=== PATIENT | female | born 1965 | race Caucasian/White ===

== ENCOUNTER 2017-10-18 18:55 | Inpatient (IN) | payer MEDICAID, OTHER ==
[~2017-10-18] VITALS: Ht 172.7 cm; Wt 125.0 kg
[2017-10-18] MEDS ORDERED: SODIUM CHLORIDE FLUSH 10ML SYR IVF ONE (19:30)
[2017-10-18 19:55] LABS: BASOPHILS # (AUTO) 0.01 x10^3/uL (0-0.1); BASOPHILS % (AUTO) 0 % (0-1); EOSINOPHILS # (AUTO) 0.05 x10^3/uL (0-0.4); EOSINOPHILS % (AUTO) 1 % (1-7); LYMPHOCYTES # (AUTO) 3.18 x10^3/uL (1-3.4); LYMPHOCYTES % (AUTO) 32 % (22-44); MD NO; MEAN CORPUSCULAR HEMOGLOBIN 32.9 pg (27.0-34.8); MEAN CORPUSCULAR HGB CONC 34.3 g/dL (32.4-35.8); MEAN PLATELET VOLUME 10.4 fL (7.4-10.4); MONOCYTES # (AUTO) 0.48 x10^3/uL (0.2-0.8); MONOCYTES % (AUTO) 5 % (2-9); NEUTROPHILS % (AUTO) 62 % (42-75); PLATELET COUNT 154 x10^3/uL (130-400); RED CELL DISTRIBUTION WIDTH 13.6 % (9.6-15.2)
[2017-10-18 20:01] LABS: INTERNATIONAL NORMALIZED RATIO 0.99 (0.93-1.1); PROTHROMBIN TIME 10.3 Seconds (9.6-11.5)
[2017-10-18 20:06] LABS: ALBUMIN 3.6 g/dL (3.4-5.0); ANION GAP 8 mmol/L (5-15); CALCIUM 8.7 mg/dL (8.5-10.1); CHLORIDE 109 mmol/L (98-107)
[2017-10-18 20:12] LABS: ALANINE AMINOTRANSFERASE 23 U/L (12-78); ALKALINE PHOSPHATASE 101 U/L (45-117); BILIRUBIN,TOTAL 0.6 mg/dL (0.2-1.0); CREATININE 1.03 mg/dL (0.55-1.02); TOTAL PROTEIN 7.6 g/dL (6.4-8.2); TROPONIN I < 0.015 ng/mL (0.000-0.045)
[2017-10-18] MEDS ORDERED: OMNIPAQUE 350 MG/ML, 100ML BOTTLE ONE (20:45)
[2017-10-18] MEDS ORDERED: ACETAMINOPHEN 325 MG TABLET PO PRN (23:30)
[2017-10-18] MEDS: ENOXAPARIN 40 MG/0.4 ML SQ SCH (23:30)
[2017-10-18] MEDS ORDERED: TEMAZEPAM 15 MG CAPSULE PO PRN (23:30)
[2017-10-18] MEDS ORDERED: hydrALAzine 20 MG/ML, 1ML IVPush PRN (23:30)
[2017-10-18] MEDS ORDERED: ONDANSETRON ODT 4 MG PO PRN (23:30)
[2017-10-18] MEDS: NICOTINE 14MG/24 HR PATCH.TD24 TD SCH (23:30)
[2017-10-19] MEDS ORDERED: ALBUTEROL SULFATE 2.5 MG/3 ML NPPB PRN
[2017-10-19 01:36] VITALS: BP 113/72
[2017-10-19] MEDS: ALBUTEROL/IPRATROPIUM 2.5MG/0.5MG, 3 ML HHN SCH ×5 (05:20→20:25)
[2017-10-19 07:35] VITALS: BP 113/67
[2017-10-19 14:51] VITALS: BP 135/77
[2017-10-19 19:09] VITALS: BP 122/72
[2017-10-19] MEDS: ENOXAPARIN 40 MG/0.4 ML SQ SCH (23:20)
[2017-10-19] MEDS: NICOTINE 14MG/24 HR PATCH.TD24 TD SCH (23:20)
[2017-10-20 00:58] VITALS: BP 98/60
[2017-10-20] MEDS: ALBUTEROL/IPRATROPIUM 2.5MG/0.5MG, 3 ML HHN SCH ×2 (03:37→09:05)
[2017-10-20 05:19] LABS: BASOPHILS # (AUTO) 0.03 x10^3/uL (0-0.1); BASOPHILS % (AUTO) 0 % (0-1); EOSINOPHILS # (AUTO) 0.02 x10^3/uL (0-0.4); EOSINOPHILS % (AUTO) 0 % (1-7); LYMPHOCYTES # (AUTO) 2.47 x10^3/uL (1-3.4); LYMPHOCYTES % (AUTO) 31 % (22-44); MD NO; MEAN CORPUSCULAR HEMOGLOBIN 32.5 pg (27.0-34.8); MEAN CORPUSCULAR HGB CONC 33.7 g/dL (32.4-35.8); MEAN CORPUSCULAR VOLUME 96.4 fL (80-100); MEAN PLATELET VOLUME 10.2 fL (7.4-10.4); MONOCYTES # (AUTO) 0.53 x10^3/uL (0.2-0.8); MONOCYTES % (AUTO) 7 % (2-9); NEUTROPHILS # (AUTO) 4.96 x10^3/uL (1.8-6.8); NEUTROPHILS % (AUTO) 62 % (42-75); PLATELET COUNT 133 x10^3/uL (130-400); RED BLOOD COUNT 4.61 x10^6/uL (3.82-5.3); RED CELL DISTRIBUTION WIDTH 13.7 % (9.6-15.2)
[2017-10-20 05:27] LABS: ALANINE AMINOTRANSFERASE 18 U/L (12-78); ALBUMIN 3.1 g/dL (3.4-5.0); ANION GAP 8 mmol/L (5-15); CHLORIDE 107 mmol/L (98-107); CREATININE 0.84 mg/dL (0.55-1.02)
[2017-10-20 05:31] LABS: ALKALINE PHOSPHATASE 81 U/L (45-117); BILIRUBIN,TOTAL 0.5 mg/dL (0.2-1.0); TOTAL PROTEIN 6.8 g/dL (6.4-8.2)
[2017-10-20 07:50] VITALS: BP 114/72
[2017-10-20] MEDS ORDERED: FLU VACC QS2017-18 (36MOS+) UP/PF 0.5 ML IM-VACC ONE (08:00)
[2017-10-20] MEDS: BENZONATATE 100 MG CAPSULE PO SCH ×3 (08:13→21:59)
[2017-10-20] MEDS: GUAIFENESIN 200 MG TABLET PO SCH ×3 (10:54→21:59)
[2017-10-20] MEDS: AMOXICILLIN 500 MG CAPSULE PO SCH ×2 (10:54→21:59)
[2017-10-20] MEDS ORDERED: AMOX-291 PO (16:59)
[2017-10-20] MEDS ORDERED: PRED20TA PO (16:59)
[2017-10-20 18:42] VITALS: BP 116/72
[2017-10-20 20:06] VITALS: BP 125/80
[2017-10-20] MEDS: ENOXAPARIN 40 MG/0.4 ML SQ SCH (21:58)
[2017-10-20] MEDS: NICOTINE 14MG/24 HR PATCH.TD24 TD SCH (21:59)
[2017-10-21 01:59] VITALS: BP 96/68
[2017-10-21] MEDS: GUAIFENESIN 200 MG TABLET PO SCH (05:53)
[2017-10-21 07:33] VITALS: BP 100/72
[2017-10-21] MEDS: AMOXICILLIN 500 MG CAPSULE PO SCH (08:08)
[2017-10-21] MEDS: BENZONATATE 100 MG CAPSULE PO SCH (08:08)
[2017-10-21] MEDS ORDERED: BENZ-17 PO (11:13)
== END 2017-10-21 11:27 | disposition home or self-care (01) | DRG 189 ==
LOC: ED 22:58 → EDIP 23:05 → 4EST 23:21 → DCLOUNGE 10-21 11:11
PROVIDERS: ADMIT Hospitalist; ATTEND Hospitalist
DX: J96.01 Acute respiratory failure with hypoxia (principal); E66.2 Morbid (severe) obesity with alveolar hypoventilation; I50.32 Chronic diastolic (congestive) heart failure; G45.9 Transient cerebral ischemic attack, unspecified; J44.1 Chronic obstructive pulmonary disease with (acute) exacerbation; F17.210 Nicotine dependence, cigarettes, uncomplicated; G47.33 Obstructive sleep apnea (adult) (pediatric); I25.2 Old myocardial infarction; K04.7 Periapical abscess without sinus; K05.10 Chronic gingivitis, plaque induced; R53.82 Chronic fatigue, unspecified; Z82.49 Family history of ischemic heart disease and other diseases of the circulatory system; Z86.711 Personal history of pulmonary embolism; Z86.718 Personal history of other venous thrombosis and embolism; Z86.73 Personal history of transient ischemic attack (TIA), and cerebral infarction without residual deficits; Z91.19 Patient's noncompliance with other medical treatment and regimen
CPT/HCPCS: 36415; 71045; 71275; 80053; 83735; 83880; 84100; 84484; 85025; 85610; 85730; 93005; 93306; 94640; 99285; J1650; J7620; Q9967; J7512

== ENCOUNTER 2018-09-15 12:57 | Inpatient (IN) | payer OTHER ==
[~2018-09-15] VITALS: Ht 172.7 cm; Wt 122.1 kg
[~2018-09-15 12:57] MED LIST: AMOX-291 PO; BENZ-17 PO; PRED20TA PO
[2018-09-15] MEDS ORDERED: SODIUM CHLORIDE FLUSH 10ML SYR IVF ONE (13:30)
[2018-09-15] MEDS ORDERED: ALBUTEROL/IPRATROPIUM 2.5MG/0.5MG, 3 ML ONE (13:51)
[2018-09-15 13:53] LABS: BASOPHILS # (AUTO) 0.03 x10^3/uL (0-0.1); BASOPHILS % (AUTO) 1 % (0-1); EOSINOPHILS # (AUTO) 0.01 x10^3/uL (0-0.4); EOSINOPHILS % (AUTO) 0 % (1-7); LYMPHOCYTES # (AUTO) 1.18 x10^3/uL (1-3.4); LYMPHOCYTES % (AUTO) 24 % (22-44); MD NO; MEAN CORPUSCULAR HEMOGLOBIN 32.2 pg (27.0-34.8); MEAN CORPUSCULAR HGB CONC 33.9 g/dL (32.4-35.8); MEAN CORPUSCULAR VOLUME 95.2 fL (80-100); MEAN PLATELET VOLUME 9.9 fL (7.4-10.4); MONOCYTES # (AUTO) 0.47 x10^3/uL (0.2-0.8); MONOCYTES % (AUTO) 9 % (2-9); NEUTROPHILS # (AUTO) 3.33 x10^3/uL (1.8-6.8); NEUTROPHILS % (AUTO) 66 % (42-75); PLATELET COUNT 121 x10^3/uL (130-400); RED BLOOD COUNT 4.48 x10^6/uL (3.82-5.3); RED CELL DISTRIBUTION WIDTH 13.2 % (9.6-15.2)
[2018-09-15] MEDS ORDERED: ALBUTEROL/IPRATROPIUM 2.5MG/0.5MG, 3 ML NPPB ONE (14:00)
[2018-09-15 14:01] LABS: ALBUMIN 3.5 g/dL (3.4-5.0); ANION GAP 5 mmol/L (5-15); CALCIUM 8.4 mg/dL (8.5-10.1); CHLORIDE 107 mmol/L (98-107); CREATININE 0.73 mg/dL (0.55-1.02)
[2018-09-15] MEDS ORDERED: HOME OXYGEN INH (14:12)
[2018-09-15] MEDS ORDERED: BUDE10.22 INH (14:12)
[2018-09-15] MEDS ORDERED: ALBU6.7H INH (14:12)
[2018-09-15] MEDS ORDERED: WARF-36 PO (14:12)
[2018-09-15] MEDS ORDERED: METO25TA35 PO (14:12)
[2018-09-15] MEDS ORDERED: WARF7.5T46 PO (14:12)
[2018-09-15 14:25] LABS: TROPONIN I < 0.015 ng/mL (0.000-0.045)
[2018-09-15] MEDS ORDERED: IBUPROFEN 200 MG TABLET PO ONE (15:00)
[2018-09-15] MEDS ORDERED: IBUPROFEN 800 MG TABLET ONE (15:32)
[2018-09-15] MEDS ORDERED: IBUPROFEN 200 MG TABLET ONE (15:35)
--- NOTE | 2018-09-15 15:37 | NUR ---
PT MED NOTED FOR CHRONIC BACK PAIN AND INCREASED PAIN WITH FREQUENT COUGHING.
[2018-09-15] MEDS ORDERED: BISACODYL 10 MG SUPP PR PRN (16:00)
[2018-09-15] MEDS ORDERED: ONDANSETRON 2MG/ML, 2ML IVPush PRN (16:00)
[2018-09-15] MEDS ORDERED: ENALAPRILAT 1.25 MG/ML, 2ML IVPush PRN (16:00)
[2018-09-15] MEDS ORDERED: DOCUSATE 100 MG CAPSULE PO PRN (16:00)
[2018-09-15] MEDS ORDERED: POLYETHYLENE GLYCOL 17 GM PACKET PO PRN (16:00)
[2018-09-15 16:05] LABS: INTERNATIONAL NORMALIZED RATIO 1.14 (0.93-1.1)
[2018-09-15 17:00] VITALS: BP 137/53
[2018-09-15] MEDS ORDERED: WARFARIN 7.5 MG TABLET PO-COUM ONE (18:00)
[2018-09-15] MEDS: ALBUTEROL/IPRATROPIUM 2.5MG/0.5MG, 3 ML NPPB SCH ×2 (18:00→20:33)
[2018-09-15] MEDS: methylPREDNISolone SOD SUCC 125 MG/2 ML IVPush SCH ×2 (18:08→23:51)
[2018-09-15] MEDS: ENOXAPARIN 40 MG/0.4 ML SQ SCH (18:08)
[2018-09-15] MEDS: DOXYCYCLINE 100 MG in DEXTROSE 5% 250 ML IV SCH (18:08)
[2018-09-15 19:27] VITALS: BP 140/79
[2018-09-15] MEDS: GUAIFENESIN ER 600 MG TABLET PO SCH (20:08)
[2018-09-15] MEDS: METOPROLOL TARTRATE 25 MG TABLET PO SCH (20:08)
[2018-09-15] MEDS: CEFTRIAXONE PMX 1GM/50ML 50 ML IV SCH (20:09)
[2018-09-15] MEDS: SODIUM CHLORIDE FLUSH 10ML SYR IVF SCH (20:09)
[2018-09-15] MEDS ORDERED: ALBUTEROL SULFATE 2.5 MG/3 ML NPPB SCH (21:00)
[2018-09-15 21:05] LABS: RAPID INFLUENZA B Negative (Negative)
[2018-09-15 21:06] LABS: RAPID INFLUENZA A POSITIVE (Negative)
[2018-09-16 00:41] VITALS: BP 104/62
[2018-09-16 02:06] VITALS: BP 106/64
[2018-09-16] MEDS ORDERED: OSELTAMIVIR 75 MG CAPSULE PO SCH (05:00)
[2018-09-16] MEDS: methylPREDNISolone SOD SUCC 125 MG/2 ML IVPush SCH ×3 (05:43→18:05)
[2018-09-16] MEDS: DOXYCYCLINE 100 MG in DEXTROSE 5% 250 ML IV SCH ×2 (05:43→18:34)
[2018-09-16] MEDS: OSELTAMIVIR 75 MG CAPSULE PO SCH ×3 (05:43→21:03)
[2018-09-16 06:37] LABS: MEAN CORPUSCULAR HEMOGLOBIN 31.9 pg (27.0-34.8); MEAN CORPUSCULAR HGB CONC 33.4 g/dL (32.4-35.8); MEAN CORPUSCULAR VOLUME 95.4 fL (80-100); MEAN PLATELET VOLUME 10.1 fL (7.4-10.4); PLATELET COUNT 121 x10^3/uL (130-400); RED BLOOD COUNT 4.62 x10^6/uL (3.82-5.3); RED CELL DISTRIBUTION WIDTH 13.4 % (9.6-15.2)
[2018-09-16 06:41] LABS: INTERNATIONAL NORMALIZED RATIO 1.1 (0.93-1.1); PROTHROMBIN TIME 11.6 Seconds (9.6-11.5)
[2018-09-16 06:42] LABS: ANION GAP 6 mmol/L (5-15); CALCIUM 8.6 mg/dL (8.5-10.1); CHLORIDE 108 mmol/L (98-107); CREATININE 1.01 mg/dL (0.55-1.02)
[2018-09-16 06:55] VITALS: BP 111/65
[2018-09-16] MEDS: ALBUTEROL/IPRATROPIUM 2.5MG/0.5MG, 3 ML NPPB SCH ×6 (07:20→22:00)
[2018-09-16 07:56] LABS: MD YES
[2018-09-16 08:01] LABS: BAND#(MANUAL) 0.28 x10^3/uL; BANDS%(MANUAL) 12 % (0-7); LYMPH#(MANUAL) 0.62 x10^3/uL (1-3.4); LYMPHS% (MANUAL) 27 % (22-44); SEGS% (MANUAL) 52 % (42-75)
[2018-09-16 08:02] LABS: REACTIVE LYMPHS % (MANUAL) 3 % (0-0)
[2018-09-16 08:03] LABS: MONOS#(MANUAL) 0.14 x10^3/uL (0.3-2.7); MONOS% (MANUAL) 6 % (2-9); REACTIVE LYMPHS # (MANUAL) 0.07 x10^3/uL (0-0)
[2018-09-16 08:05] LABS: <RBC MORPHOLOGY> NORMAL
[2018-09-16 08:07] LABS: <PLATELET ESTIMATE> DECREASED
[2018-09-16 08:09] LABS: <PLT MORPHOLOGY> NORMAL PLT MORPH
[2018-09-16] MEDS ORDERED: TEMPLATE NON-FORMULARY MED. (Warfarin Sodium** 5 MG) PO SCH (09:00)
[2018-09-16] MEDS: METOPROLOL TARTRATE 25 MG TABLET PO SCH ×2 (09:34→21:03)
[2018-09-16] MEDS: GUAIFENESIN ER 600 MG TABLET PO SCH ×2 (09:35→21:03)
[2018-09-16] MEDS: SODIUM CHLORIDE FLUSH 10ML SYR IVF SCH ×2 (09:35→21:04)
[2018-09-16] MEDS: ACETAMINOPHEN 325 MG TABLET PO PRN ×2 (09:36→18:06)
[2018-09-16 13:18] VITALS: BP 110/64
[2018-09-16] MEDS ORDERED: WARFARIN 7.5 MG TABLET PO-COUM SCH (18:00)
[2018-09-16] MEDS: ENOXAPARIN 40 MG/0.4 ML SQ SCH (18:07)
[2018-09-16 18:55] VITALS: BP 107/51
[2018-09-16] MEDS: CEFTRIAXONE PMX 1GM/50ML 50 ML IV SCH (21:03)
[2018-09-16 21:10] VITALS: BP 103/60
[2018-09-17 01:48] VITALS: BP 109/63
[2018-09-17] MEDS: methylPREDNISolone SOD SUCC 125 MG/2 ML IVPush SCH ×2 (05:46→18:22)
[2018-09-17] MEDS: DOXYCYCLINE 100 MG in DEXTROSE 5% 250 ML IV SCH ×2 (05:46→18:22)
[2018-09-17] MEDS: ALBUTEROL/IPRATROPIUM 2.5MG/0.5MG, 3 ML NPPB SCH ×5 (06:00→22:30)
[2018-09-17 06:30] LABS: BASOPHILS # (AUTO) 0.01 x10^3/uL (0-0.1); BASOPHILS % (AUTO) 0 % (0-1); EOSINOPHILS % (AUTO) 0 % (1-7); LYMPHOCYTES # (AUTO) 1.81 x10^3/uL (1-3.4); LYMPHOCYTES % (AUTO) 22 % (22-44); MD NO; MEAN CORPUSCULAR HEMOGLOBIN 31.4 pg (27.0-34.8); MEAN CORPUSCULAR VOLUME 95.3 fL (80-100); MEAN PLATELET VOLUME 9.8 fL (7.4-10.4); MONOCYTES # (AUTO) 1.03 x10^3/uL (0.2-0.8); MONOCYTES % (AUTO) 13 % (2-9); NEUTROPHILS # (AUTO) 5.32 x10^3/uL (1.8-6.8); NEUTROPHILS % (AUTO) 65 % (42-75); PLATELET COUNT 128 x10^3/uL (130-400); RED BLOOD COUNT 4.45 x10^6/uL (3.82-5.3); RED CELL DISTRIBUTION WIDTH 13.4 % (9.6-15.2)
[2018-09-17 06:34] LABS: ANION GAP 6 mmol/L (5-15); CALCIUM 8.6 mg/dL (8.5-10.1); CHLORIDE 109 mmol/L (98-107); CREATININE 0.68 mg/dL (0.55-1.02)
[2018-09-17 06:46] LABS: INTERNATIONAL NORMALIZED RATIO 1.48 (0.93-1.1); PROTHROMBIN TIME 15.5 Seconds (9.6-11.5)
[2018-09-17 07:11] VITALS: BP 106/54
[2018-09-17] MEDS: GUAIFENESIN ER 600 MG TABLET PO SCH ×2 (09:17→20:10)
[2018-09-17] MEDS: OSELTAMIVIR 75 MG CAPSULE PO SCH ×2 (09:17→20:09)
[2018-09-17] MEDS: METOPROLOL TARTRATE 25 MG TABLET PO SCH ×2 (09:17→20:10)
[2018-09-17] MEDS: SODIUM CHLORIDE FLUSH 10ML SYR IVF SCH ×2 (09:18→20:10)
[2018-09-17 11:55] LABS: CLOSTRIDIUM DIFFICILE ANTIGEN NEGATIVE; CLOSTRIDIUM DIFFICILE TOXIN NEGATIVE (Negative)
[2018-09-17 12:45] VITALS: BP 108/58
[2018-09-17] MEDS ORDERED: WARFARIN 5 MG TABLET PO-COUM SCH (18:00)
[2018-09-17] MEDS: ENOXAPARIN 40 MG/0.4 ML SQ SCH (18:22)
[2018-09-17 19:00] VITALS: BP 117/65
[2018-09-17] MEDS: CEFTRIAXONE PMX 1GM/50ML 50 ML IV SCH (20:09)
[2018-09-18 00:16] VITALS: BP 113/54
[2018-09-18] MEDS: methylPREDNISolone SOD SUCC 125 MG/2 ML IVPush SCH (05:49)
[2018-09-18] MEDS: DOXYCYCLINE 100 MG in DEXTROSE 5% 250 ML IV SCH ×2 (05:49→18:01)
[2018-09-18 05:54] LABS: INTERNATIONAL NORMALIZED RATIO 1.81 (0.93-1.1); PROTHROMBIN TIME 18.8 Seconds (9.6-11.5)
[2018-09-18 07:30] VITALS: BP 119/72
[2018-09-18] MEDS: ALBUTEROL/IPRATROPIUM 2.5MG/0.5MG, 3 ML NPPB SCH ×5 (07:30→22:08)
[2018-09-18] MEDS: GUAIFENESIN ER 600 MG TABLET PO SCH ×2 (09:38→20:11)
[2018-09-18] MEDS: METOPROLOL TARTRATE 25 MG TABLET PO SCH ×2 (09:38→20:11)
[2018-09-18] MEDS: OSELTAMIVIR 75 MG CAPSULE PO SCH ×2 (09:38→20:10)
[2018-09-18] MEDS: SODIUM CHLORIDE FLUSH 10ML SYR IVF SCH ×2 (09:39→20:11)
[2018-09-18 12:32] VITALS: BP 128/79
[2018-09-18] MEDS ORDERED: WARFARIN 3 MG TABLET PO-COUM SCH (18:00)
[2018-09-18] MEDS: ENOXAPARIN 40 MG/0.4 ML SQ SCH (18:01)
[2018-09-18 19:11] VITALS: BP 126/72
[2018-09-18] MEDS: CEFTRIAXONE PMX 1GM/50ML 50 ML IV SCH (20:10)
[2018-09-19 00:25] VITALS: BP 106/63
[2018-09-19 05:14] LABS: INTERNATIONAL NORMALIZED RATIO 2.16 (0.93-1.1)
[2018-09-19] MEDS: DOXYCYCLINE 100 MG in DEXTROSE 5% 250 ML IV SCH (05:37)
[2018-09-19] MEDS: ALBUTEROL/IPRATROPIUM 2.5MG/0.5MG, 3 ML NPPB SCH ×3 (07:35→14:55)
[2018-09-19 08:35] VITALS: BP 109/56
[2018-09-19] MEDS: METOPROLOL TARTRATE 25 MG TABLET PO SCH (08:48)
[2018-09-19] MEDS: OSELTAMIVIR 75 MG CAPSULE PO SCH (08:48)
[2018-09-19] MEDS: GUAIFENESIN ER 600 MG TABLET PO SCH (08:48)
[2018-09-19] MEDS: SODIUM CHLORIDE FLUSH 10ML SYR IVF SCH (08:48)
[2018-09-19] MEDS ORDERED: OSEL75CA PO (12:20)
[2018-09-19] MEDS ORDERED: CEFD300C37 PO (12:20)
[2018-09-19] MEDS ORDERED: PRED10TA PO (12:20)
[2018-09-19 14:22] VITALS: BP 101/53
[2018-09-19] MEDS ORDERED: WARFARIN 3 MG TABLET PO-COUM SCH (18:00)
== END 2018-09-19 16:18 | disposition home or self-care (01) | DRG 871 ==
LOC: ED 14:21 → EDIP 15:08 → 3NE 16:16
PROVIDERS: ADMIT Internal Medicine; ATTEND Internal Medicine
DX: A41.9 Sepsis, unspecified organism (principal); J96.21 Acute and chronic respiratory failure with hypoxia; I50.32 Chronic diastolic (congestive) heart failure; J44.0 Chronic obstructive pulmonary disease with (acute) lower respiratory infection; J44.1 Chronic obstructive pulmonary disease with (acute) exacerbation; A08.4 Viral intestinal infection, unspecified; F17.210 Nicotine dependence, cigarettes, uncomplicated; G47.33 Obstructive sleep apnea (adult) (pediatric); I25.10 Atherosclerotic heart disease of native coronary artery without angina pectoris; I25.2 Old myocardial infarction; J10.1 Influenza due to other identified influenza virus with other respiratory manifestations; J20.9 Acute bronchitis, unspecified; Z79.01 Long term (current) use of anticoagulants; Z82.49 Family history of ischemic heart disease and other diseases of the circulatory system; Z83.3 Family history of diabetes mellitus; Z86.718 Personal history of other venous thrombosis and embolism; Z86.73 Personal history of transient ischemic attack (TIA), and cerebral infarction without residual deficits; Z99.81 Dependence on supplemental oxygen
CPT/HCPCS: 36415; 87400; 99285; J7620; 71045; 80048; 82040; 83735; 84100; 84484; 85025; 85379; 85610; 87040; 87324; 93005; 94640; G0378; J0696; J1650; J7060; J2930; J7512

== ENCOUNTER 2020-03-27 22:45 | Emergency (ER) | payer OTHER ==
[~2020-03-27] VITALS: Ht 170.2 cm; Wt 114.0 kg
[~2020-03-27 22:45] MED LIST changes: +ALBU6.7H8 INH; +BUDE10.22 INH; +CEFD300C37 PO; +HOME OXYGEN INH; +METO25TA35 PO; +OSEL75CA26 PO; +PRED10TA PO; +WARF-36 PO; +WARF7.5T46 PO
[2020-03-27] MEDS ORDERED: methylPREDNISolone SOD SUCC 125 MG/2 ML IV ONE (23:30)
[2020-03-27] MEDS ORDERED: SODIUM CHLORIDE FLUSH 10ML SYR IVF ONE (23:30)
[2020-03-27] MEDS ORDERED: methylPREDNISolone SOD SUCC 125 MG/2 ML ONE (23:48)
[2020-03-27] MEDS ORDERED: ALBUTEROL/IPRATROPIUM 2.5MG/0.5MG, 3 ML ONE (23:48)
[2020-03-27 23:58] LABS: BASOPHILS # (AUTO) 0.05 x10^3/uL (0-0.1); BASOPHILS % (AUTO) 1 % (0-1); EOSINOPHILS # (AUTO) 0.05 x10^3/uL (0-0.4); EOSINOPHILS % (AUTO) 1 % (1-7); LYMPHOCYTES # (AUTO) 2.64 x10^3/uL (1-3.4); LYMPHOCYTES % (AUTO) 27 % (22-44); MD NO; MEAN CORPUSCULAR HEMOGLOBIN 31.8 pg (27.0-34.8); MEAN CORPUSCULAR HGB CONC 32.7 g/dL (32.4-35.8); MEAN CORPUSCULAR VOLUME 97.3 fL (80-100); MEAN PLATELET VOLUME 9.1 fL (7.4-10.4); MONOCYTES # (AUTO) 0.59 x10^3/uL (0.2-0.8); MONOCYTES % (AUTO) 6 % (2-9); NEUTROPHILS # (AUTO) 6.64 x10^3/uL (1.8-6.8); NEUTROPHILS % (AUTO) 67 % (42-75); PLATELET COUNT 176 x10^3/uL (130-400); RED CELL DISTRIBUTION WIDTH 13.3 % (9.6-15.2)
[2020-03-28] MEDS ORDERED: ALBUTEROL/IPRATROPIUM 2.5MG/0.5MG, 3 ML NPPB ONE
--- NOTE | 2020-03-28 | NUR ---
PT UPDATED ON PLAN OF CARE. ASKING REPEATEDLY IF SHE WILL BE STAYING, PT INFORMED THAT WE ARE NOT ABLE TO MAKE THAT DECISION AT THIS TIME, HER RESULTS ARE STILL PENDING. BREATHING TREATMENT SET UP AT BEDSIDE, PT EDUCATED ON ITS USE, EKG PERFORMED FIRST. WHEN THIS NURSE RETURNED TO THE ROOM, PT SATS NOTED TO BE DROPPING, RESPIRATORY RATE LOWER. PT STATED "ABOUT TIME, BEFORE I DROP BELOW 80%." PT HANDED BREATHING TREATMENT, RESPIRATIONS RETURNED TO PREVIOUS RATE. PT DENIES ANY FURTHER NEEDS OR CONCERNS. CALL LIGHT IN REACH. TREATMENT RUNNING AT THIS TIME. SIGN POSTED ON DOOR, ISO CART OUTSIDE OF ROOM.
[2020-03-28 00:09] LABS: INTERNATIONAL NORMALIZED RATIO 0.94 (0.93-1.1); PROTHROMBIN TIME 9.7 Seconds (9.6-11.5)
[2020-03-28 00:11] LABS: ALANINE AMINOTRANSFERASE 21 U/L (12-78); ALBUMIN 3.6 g/dL (3.4-5.0); ANION GAP 7 mmol/L (5-15); CALCIUM 9.2 mg/dL (8.5-10.1); CHLORIDE 108 mmol/L (98-107); CREATININE 0.85 mg/dL (0.55-1.02)
[2020-03-28 00:15] LABS: ALKALINE PHOSPHATASE 112 U/L (45-117); BILIRUBIN,TOTAL 0.5 mg/dL (0.2-1.0); TOTAL PROTEIN 7.9 g/dL (6.4-8.2); TROPONIN I < 0.015 ng/mL (0.000-0.045)
--- NOTE | 2020-03-28 00:21 | NUR ---
BEDSIDE REPORT FROM APOLINAR OCONNELL.
--- NOTE | 2020-03-28 00:48 | NUR ---
PT TO IMAGING. PT TOLD EMS EDUCATOR THAT SHE WEARS 3-4L OF O2 AT BASELINE, THIS INFROMATION WAS NOT REPORTED TO PRIVIOUS PRIMARY RN OR ERP. PT PLACED ON 3L O2
[2020-03-28] MEDS ORDERED: OMNIPAQUE 350 MG/ML, 75ML BOTTLE ONE (00:59)
--- NOTE | 2020-03-28 01:12 | NUR ---
PT SITTING IN BED, ON PHONE, NO SIGNS OF DISTRESS, RESPIRATIONS EVEN AND UNLABORED.
--- NOTE | 2020-03-28 01:39 | NUR ---
AWAITING CT READ.
--- NOTE | 2020-03-28 01:50 | NUR ---
CT CALLED ABOUT READ OF IMAGE. PER CT "I'LL MAKE SURE THEY GET THE STAT READ."
--- NOTE | 2020-03-28 02:13 | NUR ---
ERP TO BEDSIDE TO UPDATE PT ON PLAN OF CARE AT THIS TIME
[2020-03-28 02:46] VITALS: BP 122/69
== END 2020-03-28 02:58 | disposition home or self-care (01) ==
LOC: ED 03-28 02:30
DX: J44.1 Chronic obstructive pulmonary disease with (acute) exacerbation (principal); Z20.828 Contact with and (suspected) exposure to other viral communicable diseases; R06.02 Shortness of breath; R05 Cough; M79.89 Other specified soft tissue disorders; I25.2 Old myocardial infarction; I50.9 Heart failure, unspecified; F17.210 Nicotine dependence, cigarettes, uncomplicated; Z86.73 Personal history of transient ischemic attack (TIA), and cerebral infarction without residual deficits; Z86.718 Personal history of other venous thrombosis and embolism
CPT/HCPCS: 36415; 71045; 71275; 80053; 83880; 84484; 85025; 85610; 85730; 87040; 87635; 93005; 94640; 96374; 99285; 99406; J2930; Q9967

== ENCOUNTER 2020-04-08 17:39 | Inpatient (IN) | payer OTHER ==
[~2020-04-08] VITALS: Ht 170.2 cm; Wt 114.4 kg
[2020-04-08] MEDS ORDERED: ALBUTEROL/IPRATROPIUM 2.5MG/0.5MG, 3 ML NPPB ONE (18:30)
[2020-04-08] MEDS ORDERED: ALBUTEROL SULFATE 2.5 MG/3 ML NPPB ONE (18:30)
[2020-04-08] MEDS ORDERED: ALBUTEROL SULFATE 2.5 MG/3 ML ONE (18:45)
[2020-04-08] MEDS ORDERED: ALBUTEROL/IPRATROPIUM 2.5MG/0.5MG, 3 ML ONE (18:45)
--- NOTE | 2020-04-08 18:51 | NUR ---
LATE ENTRY DUE TO PATIENT CARE: THIS IS A 54 YO FEMALE COMING IN FOR WORSENING COUGH/SOB/FATIGUE OVER THE PAST COUPLE WEEKS. PATIENT WAS SEEN HERE A FEW WEEKS AGO FOR COPD EXACERBATION AND D/C'ED. SEEN AT URGENT CARE AND PRIMARY COUPLE WEEKS AGO AND DX WITH PNA, TAKING ZITHROMAX AND CEFNIDIR. PATIENT WAS TESTED FOR COVID X2 (BOTH NEGATIVE) PRIOR TO SEEING PCP. ALL MONITORING IN PLACE, PATIENT CONTINUALLY COUGHING, UNABLE TO DETERMINE HEART RHYTHM AT THIS TIME DUE TO ARTIFACT. ALL OTHER VSS, PATIENT ON 4L NC (BASELINE AT HOME O2). CALL LIGHT IN REACH. PIV PLACED BY [employer]ER STUDENTS. SCIENTIFIC PROGRAMMER ANALYST IN ROOM, WILL GIVE BREATHING TX AFTER
[2020-04-08 19:30] LABS: BASOPHILS # (AUTO) 0.03 x10^3/uL (0-0.1); BASOPHILS % (AUTO) 0 % (0-1); EOSINOPHILS # (AUTO) 0.06 x10^3/uL (0-0.4); EOSINOPHILS % (AUTO) 0 % (1-7); LYMPHOCYTES # (AUTO) 4.06 x10^3/uL (1-3.4); LYMPHOCYTES % (AUTO) 24 % (22-44); MD NO; MEAN CORPUSCULAR HEMOGLOBIN 31.9 pg (27.0-34.8); MEAN CORPUSCULAR HGB CONC 32.8 g/dL (32.4-35.8); MEAN CORPUSCULAR VOLUME 97.2 fL (80-100); MEAN PLATELET VOLUME 9.4 fL (7.4-10.4); MONOCYTES # (AUTO) 0.46 x10^3/uL (0.2-0.8); MONOCYTES % (AUTO) 3 % (2-9); NEUTROPHILS # (AUTO) 12.06 x10^3/uL (1.8-6.8); NEUTROPHILS % (AUTO) 72 % (42-75); PLATELET COUNT 175 x10^3/uL (130-400); RED BLOOD COUNT 4.54 x10^6/uL (3.82-5.3); RED CELL DISTRIBUTION WIDTH 13.3 % (9.6-15.2)
--- NOTE | 2020-04-08 19:30 | NUR ---
BREATHING TX INITIATED AFTER LAB COMPLETED ALL BLOOD DRAWS
[2020-04-08 19:39] LABS: ALANINE AMINOTRANSFERASE 21 U/L (12-78); ALBUMIN 3.4 g/dL (3.4-5.0); ANION GAP 6 mmol/L (5-15); CALCIUM 9.1 mg/dL (8.5-10.1); CHLORIDE 107 mmol/L (98-107); CREATININE 0.87 mg/dL (0.55-1.02)
[2020-04-08 19:41] LABS: D-DIMER (DIC) 1.13 ug/mlFEU (0.00-0.52); PROTIME 9.9 Seconds (9.6-11.5)
[2020-04-08 19:49] LABS: ALKALINE PHOSPHATASE 97 U/L (45-117); BILIRUBIN,TOTAL 0.6 mg/dL (0.2-1.0); TOTAL PROTEIN 7.3 g/dL (6.4-8.2)
[2020-04-08] MEDS ORDERED: methylPREDNISolone SOD SUCC 125 MG/2 ML IVPush ONE (20:30)
[2020-04-08] MEDS ORDERED: methylPREDNISolone SOD SUCC 125 MG/2 ML ONE (21:17)
--- NOTE | 2020-04-08 21:19 | NUR ---
ATTEMPTED TO CALL REPORT X1
--- NOTE | 2020-04-08 21:24 | NUR ---
PATIENT MEDICATED PER EMAR
--- NOTE | 2020-04-08 21:39 | NUR ---
UPON COMPLETING MED REC, PATIENT STATES SHE HAS NOT TAKEN ANY MEDICATIONS FOR "MANY MONTHS". ONLY MEDICATION IS HOME O2 AND RECENT RX FOR ABX TO TREAT PNEUMONIA
--- NOTE | 2020-04-08 21:40 | NUR ---
REPORT GIVEN TO APOLINAR JULES. PLAN OF CARE DISCUSSED
[2020-04-08 22:10] VITALS: BP 117/73
[2020-04-08] MEDS ORDERED: GABAPENTIN 300 MG CAPSULE PO PRN (22:30)
[2020-04-08] MEDS ORDERED: ACETAMINOPHEN 325 MG TABLET PO PRN (22:30)
[2020-04-08] MEDS ORDERED: LIDODERM 5% PATCH TD PRN (22:30)
[2020-04-08] MEDS ORDERED: DOCUSATE 100 MG CAPSULE PO PRN (22:30)
[2020-04-08] MEDS ORDERED: ENALAPRILAT 1.25 MG/ML, 2ML IVPush PRN (22:30)
[2020-04-08] MEDS ORDERED: MELATONIN 5 MG TABLET PO PRN (22:30)
[2020-04-08] MEDS ORDERED: ALBU18HF INH (23:04)
[2020-04-09] MEDS ORDERED: NICOTINE 21 MG/24 HR PATCH.TD24 TD ONE (00:30)
[2020-04-09] MEDS ORDERED: ENOXAPARIN 40 MG/0.4 ML SQ SCH (01:00)
[2020-04-09 01:24] VITALS: BP 115/72
[2020-04-09] MEDS: ALBUTEROL HFA 90 MCG/SPRAY INH PRN ×2 (03:58→10:40)
[2020-04-09] MEDS ORDERED: methylPREDNISolone SOD SUCC 40 MG/ML IVPush SCH (04:00)
[2020-04-09 06:21] LABS: MEAN CORPUSCULAR HEMOGLOBIN 32.1 pg (27.0-34.8); MEAN CORPUSCULAR VOLUME 97.3 fL (80-100); MEAN PLATELET VOLUME 9.4 fL (7.4-10.4); PLATELET COUNT 161 x10^3/uL (130-400); RED BLOOD COUNT 4.49 x10^6/uL (3.82-5.3); RED CELL DISTRIBUTION WIDTH 13.7 % (9.6-15.2)
[2020-04-09 06:27] LABS: CHLORIDE 106 mmol/L (98-107)
[2020-04-09 06:32] LABS: ANION GAP 8 mmol/L (5-15); CALCIUM 9.1 mg/dL (8.5-10.1); CREATININE 1.15 mg/dL (0.55-1.02)
[2020-04-09 06:41] LABS: INTERNATIONAL NORMALIZED RATIO 0.96 (0.93-1.1); PROTHROMBIN TIME 9.9 Seconds (9.6-11.5)
[2020-04-09 06:43] LABS: BASOPHILS % (AUTO) 0 % (0-1); EOSINOPHILS % (AUTO) 0 % (1-7); LYMPHOCYTES # (AUTO) 0.56 x10^3/uL (1-3.4); LYMPHOCYTES % (AUTO) 6 % (22-44); MD SCAN; MONOCYTES # (AUTO) 0.01 x10^3/uL (0.2-0.8); MONOCYTES % (AUTO) 0 % (2-9); NEUTROPHILS # (AUTO) 8.44 x10^3/uL (1.8-6.8); NEUTROPHILS % (AUTO) 94 % (42-75)
[2020-04-09 06:44] VITALS: BP 120/84
[2020-04-09] MEDS ORDERED: ACETAMINOPHEN 325 MG TABLET PO PRN (07:30)
[2020-04-09] MEDS ORDERED: HEPARIN 5,000 UNITS/ML, 1ML SQ SCH (07:30)
[2020-04-09] MEDS ORDERED: SODIUM CHLORIDE 0.9% 1,000 ML IV SCH (07:30)
[2020-04-09] MEDS ORDERED: APIX5TAB PO (12:01)
[2020-04-09 12:49] VITALS: BP 121/71
== END 2020-04-09 14:05 | disposition home or self-care (01) | DRG 191 ==
LOC: ED 20:56 → EDIP 21:00 → 3N 22:04 → DCLOUNGE 04-09 13:52
PROVIDERS: ADMIT Family Medicine; ATTEND Internal Medicine
DX: J44.1 Chronic obstructive pulmonary disease with (acute) exacerbation (principal); I50.32 Chronic diastolic (congestive) heart failure; J96.10 Chronic respiratory failure, unspecified whether with hypoxia or hypercapnia; F17.210 Nicotine dependence, cigarettes, uncomplicated; G47.33 Obstructive sleep apnea (adult) (pediatric); E66.01 Morbid (severe) obesity due to excess calories; I25.10 Atherosclerotic heart disease of native coronary artery without angina pectoris; I25.2 Old myocardial infarction; Z79.01 Long term (current) use of anticoagulants; Z82.49 Family history of ischemic heart disease and other diseases of the circulatory system; Z83.3 Family history of diabetes mellitus; Z68.39 Body mass index [BMI] 39.0-39.9, adult; Z86.718 Personal history of other venous thrombosis and embolism; Z86.73 Personal history of transient ischemic attack (TIA), and cerebral infarction without residual deficits; Z99.81 Dependence on supplemental oxygen
CPT/HCPCS: 36415; 84145; J7613; 71045; 80048; 80053; 82728; 83605; 83615; 85025; 85049; 85379; 85384; 85610; 85730; 86140; 87040; 93005; G0378; J1644; J1650; J2920; J2930; J7030

== ENCOUNTER → 2020-06-12 | Outpatient (CLI) | payer OTHER ==
[~2020-06-12] MED LIST changes: +ALBU18HF INH; +APIX5TAB PO
== END | disposition home or self-care (01) ==
LOC: CVU 07:06
PROVIDERS: ATTEND Internal Medicine Cardiovascular Disease
DX: R06.02 Shortness of breath (principal); I50.32 Chronic diastolic (congestive) heart failure
CPT/HCPCS: 93306

== ENCOUNTER → 2020-07-03 | Outpatient (CLI) | payer OTHER ==
[~2020-07-03] MED LIST changes: +REGADENOSON 0.4 MG/5 ML SYRINGE ONE
== END | disposition home or self-care (01) ==
LOC: CFH 08:11
PROVIDERS: ATTEND Internal Medicine Cardiovascular Disease
DX: I11.0 Hypertensive heart disease with heart failure (principal); I50.32 Chronic diastolic (congestive) heart failure; R06.02 Shortness of breath
CPT/HCPCS: 78452; 93017; A9502; J2785